=== PATIENT | female | born 1980 | race Caucasian/White ===

== ENCOUNTER 2017-09-09 07:33 | Emergency (ER) | payer OTHER ==
[~2017-09-09] VITALS: Ht 165.1 cm; Wt 103.5 kg
[~2017-09-09 07:33] MED LIST: EC-NAPROSYN500 MG PO; FLOMAX0.4 MG PO; LEVOTHROID88 MCG PO; PERCOCET 5/31 TABLET PO
[2017-09-09 11:35] VITALS: BP 155/94
== END 2017-09-09 11:36 | disposition home or self-care (01) ==
LOC: EME 07:33
DX: R51 Headache (principal); R09.81 Nasal congestion; E03.9 Hypothyroidism, unspecified; F41.9 Anxiety disorder, unspecified; Z87.442 Personal history of urinary calculi; Z88.0 Allergy status to penicillin; Z88.2 Allergy status to sulfonamides; Z88.6 Allergy status to analgesic agent; Z88.5 Allergy status to narcotic agent; Z88.8 Allergy status to other drugs, medicaments and biological substances
CPT/HCPCS: 99281; 99283